=== PATIENT | male | born 1985 | race African-American/Black ===

== ENCOUNTER 2022-05-05 17:56 | Emergency (ER) | payer MEDICAID ==
[~2022-05-05] VITALS: Ht 177.8 cm; Wt 81.2 kg
[2022-05-05 18:50] VITALS: BP 120/79
[2022-05-05] MEDS ORDERED: IBUPROFEN 600MG TABLET PO ONE (20:00)
[2022-05-05] MEDS ORDERED: ONDANSETRON 4MG ODT PO ONE (20:00)
[2022-05-05] MEDS ORDERED: THROAT LOZENGES-BENZOCAINE/MENTH/CETYLPYRD CL LOZENGES MM PRN (20:00)
[2022-05-05] MEDS ORDERED: IBUP-2029 MT (20:14)
[2022-05-05] MEDS ORDERED: BENZ1LOZ73 MT (20:14)
[2022-05-05] MEDS ORDERED: DEXAMETHASONE 10 MG/ML VIAL IM SCH (20:22)
== END 2022-05-05 20:44 | disposition home or self-care (01) ==
LOC: ER 17:56
DX: J02.9 Acute pharyngitis, unspecified (principal)
CPT/HCPCS: 96372; 99283; J1100; Q0162